=== PATIENT | female | born 1990 | race Caucasian/White ===

== ENCOUNTER 2018-11-13 19:27 | Emergency (ER) | payer MEDICAID ==
[~2018-11-13] VITALS: Ht 152.4 cm; Wt 54.4 kg
[2018-11-13 19:36] VITALS: BP 126/71
--- NOTE | 2018-11-13 19:39 | NUR ---
PT AMBULATORY TO BR THEN TO ER LOBBY W/ STEADY GAIT IN STABLE CONDITION.
--- NOTE | 2018-11-13 20:18 | NUR ---
PT TO ER BED 3
--- NOTE | 2018-11-13 20:28 | NUR ---
PT PRESESNT TO ED FOR EVALUATION OF ABDOMINAL PAIN X 1DAY. HX. PEPTIC ULCER, IV DRUG USE. AAO X4, GCS 15, RESPIRATIONS EVEN AND UNLABORED, BL LUNG CLEAR. SKIN WARM/PINK/DRY, +PMSC. ABDOMEN SOFT, NON DISTENDED, HYPOACTIVE BOWEL SOUND X4. VSS, STATED PAIN 10/10. DR. CURTIS MADE AWARE OF PT STATUS.
--- NOTE | 2018-11-13 20:28 | NUR ---
Dr. Diaz evaluating patient at bedside.
[2018-11-13] MEDS ORDERED: KETOROLAC 30 MG/ML VIAL IVP ONE (20:35)
[2018-11-13] MEDS ORDERED: ONDANSETRON 4 MG/2 ML VIAL IVP ONE (20:35)
[2018-11-13] MEDS ORDERED: PANTOPRAZOLE 40 MG INJ VIAL IVP ONE (20:35)
[2018-11-13] MEDS ORDERED: NACL 0.9% 1,000 ML IV ONE (20:35)
[2018-11-13 21:03] LABS: BASOPHILS % (AUTO) 0.2 % (0.0-2.0); EOSINOPHILS # (AUTO) 0.1 K/uL (0-0.4); EOSINOPHILS % (AUTO) 0.6 % (0.0-4.0); HEMATOCRIT 44.8 % (36-48); HEMOGLOBIN 15.2 g/dL (12.0-16.0); LYMPHOCYTES # (AUTO) 1.9 K/uL (2.5-16.5); LYMPHOCYTES % (AUTO) 14.2 % (20.5-51.1); MEAN CORPUSCULAR HEMOGLOBIN 31 pg (27-31); MEAN CORPUSCULAR HGB CONC 34 g/dL (33-37); MEAN CORPUSCULAR VOLUME 90.2 fL (80-94); MONOCYTES # (AUTO) 0.6 K/uL (0.8-1.0); MONOCYTES % (AUTO) 4.2 % (1.7-9.3); NEUTROPHILS # (AUTO) 10.8 K/uL (1.8-7.7); NEUTROPHILS % (AUTO) 80.8 % (42.2-75.2); PLATELET COUNT (AUTO) 339 K/uL (140-450); RED BLOOD CELL COUNT(AUTO) 4.96 MIL/uL (4.20-5.40); RED CELL DISTRIBUTION WIDTH 12.7 % (11.6-13.7); WHITE BLOOD COUNT (AUTO) 13.3 K/uL (4.8-10.8)
[2018-11-13 21:34] LABS: ALBUMIN 4.1 g/dL (3.4-5.0); ASPARTATE AMINOTRANSFERASE 15 U/L (15-37); TOTAL BILIRUBIN 0.5 mg/dL (0.0-1.0)
[2018-11-13 21:35] LABS: ANION GAP 15.9 (8-16); CARBON DIOXIDE 24.1 mmol/L (21-32); CHLORIDE 102 mmol/L (98-107); CREATININE 0.7 mg/dL (0.6-1.3); GFR ARICAN-AMERICAN 128 mL/min (>90); GLUCOSE 112 mg/dL (74-106); SODIUM SERUM 139 mmol/L (136-145); UREA NITROGEN, BLOOD 12 mg/dL (7-18)
[2018-11-13 21:36] LABS: SALICYLATE < 2.8 mg/dL (2.8-20.0)
[2018-11-13 21:52] LABS: ACETAMINOPHEN < 0.5 ug/ml (10-30)
[2018-11-13] MEDS ORDERED: POTASSIUM CHLORIDE 10 MEQ TABER PO ONE (22:55)
[2018-11-13 23:01] LABS: CANNABINOID, URINE POS. ng/mL (NEG <=50); COCAINE, URINE NEG. ng/mL (NEG <=300); OPIATE, URINE NEG. ng/mL (NEG <=2000); PHENCYCLIDINE SCREEN,URINE NEG. ng/mL (NEG <=25)
[2018-11-13 23:07] LABS: APPEARANCE,URINE CLOUDY (CLEAR); BILIRUBIN,URINE NEGATIVE (NEGATIVE); BLOOD, URINE NEGATIVE (NEGATIVE); COLOR,URINE YELLOW (YELLOW); LEUKOCYTE ESTERASE ,URINE NEGATIVE (NEGATIVE); NITRITE, URINE NEGATIVE (NEGATIVE); PH,URINE 8.5 (5.0-9.0); UGLUCOSE NEGATIVE (NEGATIVE)
[2018-11-13 23:14] LABS: RBC,URINE 0-5 (RARE) /HPF (0-5); WBC,URINE 0-5 (RARE) /HPF (0-5)
[2018-11-13 23:27] LABS: BARBITURATE, URINE NEG. ng/ml (NEG <=200); BENZODIAZEPINE, URINE NEG. ng/mL (NEG <=200)
--- NOTE | 2018-11-13 23:50 | NUR ---
Patient discharged with v/s stable. Written and verbal after care instructions given and explained. Patient alert, oriented and verbalized understanding of instructions. Ambulatory with steady gait. All questions addressed prior to discharge. ID band removed. Patient advised to follow up with PMD. Rx of LACTULOSE 10/G/5ML, ZOFRAN ODT 8 MG given. Patient educated on indication of medication including possible reaction and side effects. Opportunity to ask questions provided and answered.
[2018-11-13 23:51] VITALS: BP 99/54
== END 2018-11-13 23:50 | disposition home or self-care (01) ==
LOC: MED 19:27
DX: F15.10 Other stimulant abuse, uncomplicated (principal); R10.9 Unspecified abdominal pain
CPT/HCPCS: 36415; 74022; 80053; 80305; 81001; 81025; 85025; 93005; 96361; 96374; 96375; 99284; C9113; G0480; G0482; J1885; J2405; J7030; 81002

== ENCOUNTER 2020-08-06 12:12 | Emergency (ER) | payer MEDICAID ==
[~2020-08-06] VITALS: Ht 144.8 cm; Wt 45.8 kg
[2020-08-06 12:19] VITALS: BP 105/57
[2020-08-06 12:47] VITALS: BP 105/57
== END 2020-08-06 12:48 | disposition home or self-care (01) ==
LOC: MED 12:12
DX: O34.61 Maternal care for abnormality of vagina, first trimester (principal); F17.210 Nicotine dependence, cigarettes, uncomplicated; F12.90 Cannabis use, unspecified, uncomplicated; F15.10 Other stimulant abuse, uncomplicated; Z3A.09 9 weeks gestation of pregnancy
CPT/HCPCS: 99283

== ENCOUNTER 2020-08-10 20:25 | Emergency (ER) | payer MEDICAID ==
[~2020-08-10] VITALS: Ht 149.9 cm; Wt 46.7 kg
[2020-08-10 20:35] VITALS: BP 111/70
--- NOTE | 2020-08-10 20:40 | NUR ---
PT TAKEN TO BED 7
--- NOTE | 2020-08-10 20:45 | NUR ---
[age] Y/O PRSENTED TO ED C/O LEFT SIDED ABD PAIN X 1 DAY. PT DENIES N/V. PT STATES 14 WEEKS PREGNENT. ACTIVE BOWEL SOUNDS ALL QUADRANTS. ABD ROUND, SOFT AND NONTENDER. PT DENIES DYSURIA, FEVER, BODY ACHES. pt resting in bed, locked and in lowest position, hob elevated, side rail x1. ERMD made aware of pt status. PMH: ASTHMA, NKA
--- NOTE | 2020-08-10 20:52 | NUR ---
Dr. Dela Cruz examining patient.
--- NOTE | 2020-08-10 20:54 | NUR ---
Ultrasound at bedside.
[2020-08-10 21:10] LABS: BASOPHILS % (AUTO) 0.4 % (0.0-2.0); EOSINOPHILS # (AUTO) 0.2 K/uL (0-0.4); EOSINOPHILS % (AUTO) 2.4 % (0.0-4.0); HEMOGLOBIN 14.4 g/dL (12.0-16.0); LYMPHOCYTES # (AUTO) 2.2 K/uL (2.5-16.5); LYMPHOCYTES % (AUTO) 28.9 % (20.5-51.1); MEAN CORPUSCULAR HEMOGLOBIN 32 pg (27-31); MEAN CORPUSCULAR HGB CONC 34 g/dL (33-37); MEAN CORPUSCULAR VOLUME 92.1 fL (80-94); MONOCYTES # (AUTO) 0.6 K/uL (0.8-1.0); MONOCYTES % (AUTO) 7.4 % (1.7-9.3); NEUTROPHILS # (AUTO) 4.6 K/uL (1.8-7.7); NEUTROPHILS % (AUTO) 60.9 % (42.2-75.2); PLATELET COUNT (AUTO) 341 K/uL (140-450); RED BLOOD CELL COUNT(AUTO) 4.56 MIL/uL (4.20-5.40); RED CELL DISTRIBUTION WIDTH 12.7 % (11.6-13.7); WHITE BLOOD COUNT (AUTO) 7.6 K/uL (4.8-10.8)
[2020-08-10 21:12] LABS: BILIRUBIN,URINE NEGATIVE (NEGATIVE); BLOOD, URINE NEGATIVE (NEGATIVE); LEUKOCYTE ESTERASE ,URINE NEGATIVE (NEGATIVE); NITRITE, URINE NEGATIVE (NEGATIVE); UGLUCOSE NEGATIVE (NEGATIVE)
[2020-08-10 21:20] LABS: APPEARANCE,URINE CLEAR (CLEAR); COLOR,URINE STRAW (YELLOW)
[2020-08-10 21:41] LABS: ALBUMIN 3.8 g/dL (3.4-5.0); ANION GAP 12.6 (8-16); CARBON DIOXIDE 24.3 mmol/L (21-32); CREATININE 0.6 mg/dL (0.6-1.3); POTASSIUM 3.9 mmol/L (3.5-5.1); TOTAL BILIRUBIN 0.2 mg/dL (0.0-1.0)
--- NOTE | 2020-08-10 21:45 | NUR ---
Note undone in EDM - 08/10/20 at 2210 by [place] 1 Y/O PRSENTED TO ED C/O LEFT SIDED ABD PAIN X 1 DAY. PT DENIES N/V. PT STATES 14 WEEKS PREGNENT. ACTIVE BOWEL SOUNDS ALL QUADRANTS. ABD ROUND, SOFT AND NONTENDER. PT DENIES DYSURIA, FEVER, BODY ACHES. pt resting in bed, locked and in lowest position, hob elevated, side rail x1. ERMD made aware of pt status. PMH: ASTHMA, NKA
[2020-08-10 22:00] VITALS: BP 111/70
--- NOTE | 2020-08-10 22:00 | NUR ---
Patient discharged with v/s stable. Written and verbal after care instructions given and explained. Patient verbalized understanding. Ambulatory with steady gait. All questions addressed prior to discharge. Advised to follow up with PMD.
== END 2020-08-10 22:00 | disposition home or self-care (01) ==
LOC: MED 20:25
DX: O26.891 Other specified pregnancy related conditions, first trimester (principal); J45.909 Unspecified asthma, uncomplicated; O20.8 Other hemorrhage in early pregnancy; Z3A.01 Less than 8 weeks gestation of pregnancy; Z3A.09 9 weeks gestation of pregnancy
CPT/HCPCS: 36415; 76801; 80053; 81003; 83690; 84702; 85025; 99284; Q0092

== ENCOUNTER 2020-10-05 19:44 | Emergency (ER) | payer MEDICAID ==
[~2020-10-05] VITALS: Ht 149.9 cm; Wt 57.2 kg
[2020-10-05 19:59] VITALS: BP 115/60
--- NOTE | 2020-10-05 20:05 | NUR ---
PT TAKEN TO BED 7
--- NOTE | 2020-10-05 20:16 | NUR ---
PA GUSTAVO WITH PT
--- NOTE | 2020-10-05 20:39 | NUR ---
Dr. Priest examining patient.
[2020-10-05 21:28] VITALS: BP 112/59
--- NOTE | 2020-10-06 02:50 | NUR ---
ACI given to pt with verbal understanding. Pt ambulated off unit with steady gait and all belongs
== END 2020-10-05 21:30 | disposition home or self-care (01) ==
LOC: MED 19:44
DX: O99.342 Other mental disorders complicating pregnancy, second trimester (principal); F41.9 Anxiety disorder, unspecified; J45.909 Unspecified asthma, uncomplicated; Z3A.19 19 weeks gestation of pregnancy
CPT/HCPCS: 81002; 99284

== ENCOUNTER 2020-10-18 15:18 | Emergency (ER) | payer MEDICAID ==
[~2020-10-18] VITALS: Ht 152.4 cm; Wt 61.7 kg
[2020-10-18 15:36] VITALS: BP 118/66
--- NOTE | 2020-10-18 16:07 | NUR ---
PATIENT TOLD ADMITTING THEY WERE LEAVING, PATIENT LEFT WITHOUT BEING SEEN AT 1607
== END 2020-10-18 16:07 | disposition left against medical advice (07) ==
LOC: MED 15:18
DX: R21 Rash and other nonspecific skin eruption (principal); Z53.21 Procedure and treatment not carried out due to patient leaving prior to being seen by health care provider